=== PATIENT | female | born 1960 | race Hispanic/Latino ===

== ENCOUNTER 2016-08-20 07:07 | Outpatient (CLI) | payer MEDICARE ==
--- NOTE | 2016-08-20 11:30 | PET Report ---
PET/CT:08/20/16 07:07:00 CLINICAL: History of enlarged lymph nodes and no lesions identified on MRI of the neck. RADIOPHARMACEUTICAL: 12.37mCi F18-FDG. COMPARISON: 01/30/16 PET/CT TECHNIQUE- Following intravenous injection of F-18 FDG and an approximately 60 minute uptake period, CT and PET images from the mid skull to the upper thighs were acquired with the patient in the fasted state. No contrast was administered. The CT protocol used for this PET CT study is designed for attenuation correction and anatomic localization of PET abnormalities. This landfill gas collection system operator CT is not desired to produce and cannot replace, [id number] diagnostic CT scans with specific imaging protocols for different body parts and indications. Plasma glucose at the time of this test: 103g/dl. The standardized uptake values (SUV) are normalized to patient body weight and indicate the highest activity concentration (SUV max) in a given disease site. FINDINGS: Brain--Physiologic FDG uptake in the visualized regions of the brain. Neck--Stable fullness at the base of the tongue on the right with extension into the right vallecula. FDG uptake with SUV 5.1 compared to 5.9 on the last exam. No lymphadenopathy of the neck. Chest--Physiologic FDG uptake in mediastinal blood pool and myocardium. Lungs--No abnormal uptake. No pulmonary nodule or mass. Pleura/pericardium--No abnormal uptake. Thoracic nodes--No abnormal uptake. No lymphadenopathy. Hepatobiliary--No abnormal uptake. Liver background SUV mean, as a reference for comparing FDG studies, is 5.3 compared to 4.4 on the last exam. No liver mass. Status post cholecystectomy. Spleen--No abnormal uptake. The spleen is normal size. Pancreas--No abnormal uptake. Adrenal Glands--No abnormal uptake. Kidneys/Ureters/Bladder--No abnormal uptake. Abdominopelvic Nodes--No abnormal uptake. Bowel/Peritoneum/Mesentery--No abnormal uptake. Pelvic organs--No abnormal uptake. Status post hysterectomy with a normal vaginal cuff. Bones/Soft Tissues--No abnormal uptake. No bone lesions. IMPRESSION- Stable probably benign fullness at the base of the tongue and right hypopharynx.No new findings.
== END 2016-08-20 07:08 | disposition home or self-care (01) ==
LOC: PET 07:07
PROVIDERS: ATTEND Internal Medicine Hematology & Oncology
DX: D64.9 Anemia, unspecified (principal); R59.9 Enlarged lymph nodes, unspecified; E53.8 Deficiency of other specified B group vitamins; M89.9 Disorder of bone, unspecified; Z90.49 Acquired absence of other specified parts of digestive tract; Z90.710 Acquired absence of both cervix and uterus
CPT/HCPCS: 78815; 82962; A9552